=== PATIENT | male | born 2000 | race Hispanic/Latino ===

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

== ENCOUNTER 2020-08-21 20:21 | Emergency (ER) | payer OTHER | END 2020-08-21 21:58 | disposition home or self-care (01) | LOC: ERS 20:21 | DX: Z71.1 Person with feared health complaint in whom no diagnosis is made (principal) | CPT/HCPCS: 99281 ==

== ENCOUNTER 2022-06-16 13:12 | Emergency (ER) | payer OTHER ==
[2022-06-16] MEDS ORDERED: Ondansetron ODT 4 MG TAB ONE (13:28)
[2022-06-16] MEDS ORDERED: Dicyclomine 20 MG TAB ONE (13:28)
[2022-06-16] MEDS ORDERED: Famotidine 20 MG TAB ONE (13:43)
[2022-06-16] MEDS ORDERED: Mag-Al 1200 mg/1200 mg/30 ML UDCUP ONE (13:43)
[2022-06-16 13:50] LABS: #Eosinphils 0.2 thou/uL (0.0-0.7); #Lymphocytes 1.1 thou/uL (1.20-3.40); #Monocytes 0.9 thou/uL (0.11-0.59); #Neutrophils 9.4 thou/uL (1.40-6.50); %Basophils 0.3 % (0.0-1.0); %Eosinophils 1.3 % (0.0-10.0); %Lymphocytes 9.3 % (21.0-51.0); %Monocytes 7.4 % (0.0-10.0); %Neutrophils 81.7 % (42.0-75.0); Mean Corpuscular HGB CONC 32.8 g/dL (32.0-36.0); Mean Corpuscular Hemoglobin 29.4 pg (27.0-31.0); Mean Corpuscular Volume 89.7 fl (78.0-98.0); Mean Platelet Volume 8.2 fL (7.4-10.4); Platelet Count 226 10x3/uL (130-400); RBC Distribution Width 11.6 % (11.5-14.5); Red Blood Cell (RBC) Count 5.46 mill/uL (4.70-6.10); White Blood Cell (WBC) Count 11.5 10x3/uL (4.8-10.8)
[2022-06-16 14:30] LABS: ALT (SGPT) 16 U/L (8-55); AST (SGOT) 17 U/L (5-34); Albumin 4.5 g/dL (3.5-5.0); Alkaline Phosphatase 57 U/L (40-110); Anion Gap 13 mmol/L (10-20); BUN (Urea Nitrogen) 11 mg/dL (8.9-20.6); Bilirubin, Total 1.2 mg/dL (0.2-1.2); Calc. Creatinine Clearance 0 mL/min (70-130); Calcium 9.5 mg/dL (7.8-10.44); Carbon Dioxide 22 mmol/L (22-29); Chloride 107 mmol/L (98-107); Estimated GFR 115; Globulin 3.1 g/dL (2.4-3.5); Glucose 90 mg/dL (70-105); Lipase 14 U/L (8-78); Potassium 3.9 mmol/L (3.5-5.1); Protein, Total 7.6 g/dL (6.0-8.3); Sodium 138 mmol/L (136-145)
== END 2022-06-16 15:08 | disposition home or self-care (01) ==
LOC: ERS 13:12
DX: R10.13 Epigastric pain (principal); D72.829 Elevated white blood cell count, unspecified
CPT/HCPCS: 76705; 80053; 83690; 85025; Q0162

== ENCOUNTER 2022-06-17 10:03 | Emergency (ER) | payer OTHER ==
[2022-06-17] MEDS ORDERED: Cefepime 2 GM VIAL ONE (10:30)
[2022-06-17 10:39] LABS: #Basophils 0.1 thou/uL (0.0-0.2); #Lymphocytes 0.9 thou/uL (1.20-3.40); #Monocytes 1.1 thou/uL (0.11-0.59); #Neutrophils 9.6 thou/uL (1.40-6.50); %Basophils 0.5 % (0.0-1.0); %Eosinophils 0.3 % (0.0-10.0); %Lymphocytes 7.7 % (21.0-51.0); %Monocytes 9.5 % (0.0-10.0); Hemoglobin 16.1 g/dL (14.0-18.0); Mean Corpuscular HGB CONC 33.6 g/dL (32.0-36.0); Mean Corpuscular Hemoglobin 30.3 pg (27.0-31.0); Mean Corpuscular Volume 90.1 fl (78.0-98.0); Mean Platelet Volume 8.4 fL (7.4-10.4); Platelet Count 201 10x3/uL (130-400); RBC Distribution Width 11.4 % (11.5-14.5); Red Blood Cell (RBC) Count 5.33 mill/uL (4.70-6.10); White Blood Cell (WBC) Count 11.7 10x3/uL (4.8-10.8)
[2022-06-17] MEDS ORDERED: Vancomycin HCl 2.5 GM in Sodium Chloride 0.9% 500 ML IVPB SCH (11:00)
[2022-06-17] MEDS ORDERED: Morphine 4 MG/ML VIAL ONE (11:10)
[2022-06-17] MEDS ORDERED: Ondansetron PF 4 MG/2 ML Vial ONE (11:10)
[2022-06-17 11:22] LABS: ALT (SGPT) 17 U/L (8-55); AST (SGOT) 26 U/L (5-34); Albumin 4.5 g/dL (3.5-5.0); Alkaline Phosphatase 55 U/L (40-110); Anion Gap 19 mmol/L (10-20); BUN (Urea Nitrogen) 12 mg/dL (8.9-20.6); Bilirubin, Total 2.8 mg/dL (0.2-1.2); Calc. Creatinine Clearance 0 mL/min (70-130); Calcium 9.1 mg/dL (7.8-10.44); Carbon Dioxide 18 mmol/L (22-29); Chloride 103 mmol/L (98-107); Estimated GFR 79; Globulin 3.4 g/dL (2.4-3.5); Glucose 98 mg/dL (70-105); Potassium 4.5 mmol/L (3.5-5.1); Protein, Total 7.9 g/dL (6.0-8.3); Sodium 135 mmol/L (136-145)
[2022-06-17] MEDS ORDERED: Famotidine/PF 20 mg/2ml Vial ONE (12:17)
[2022-06-17] MEDS ORDERED: Ketorolac Tromethamine 30 MG/ML VIAL ONE (12:17)
[2022-06-17] MEDS ORDERED: Mag-Al 1200 mg/1200 mg/30 ML UDCUP PO SCH (12:30)
[2022-06-17] MEDS ORDERED: Lidocaine Viscous Sol 2% 15 ml UD Cup ONE (12:31)
[2022-06-17] MEDS ORDERED: Mag-Al 1200 mg/1200 mg/30 ML UDCUP ONE ×2 (12:31)
[2022-06-17] MEDS ORDERED: hydrOXYzine Pamoate 25 mg Capsule ONE (12:31)
[2022-06-17 12:39] LABS: SARS-CoV-2 NAA Rapid Test Not Detected (NotDetected)
[2022-06-17] MEDS ORDERED: Lidocaine Viscous Sol 2% 15 ml UD Cup SSW SCH (12:45)
[2022-06-17] MEDS ORDERED: Iopamidol-370 76% 500 ML 1 ML ONE (13:06)
[2022-06-17 13:09] LABS: Actual Bicarbonate (HCO3v) 23 mEq/L (22-28); Base Excess -2.3 mEq/L (-2.0 to +3.0); Calcium, Ionized (venous) 1.08 mmol/L (1.16-1.32); Chloride (VBG) 103 mmol/L (98-106); Hemoglobin (Hb) 15.8 g/dL (13.2-17.3); pH (venous) 7.35 (7.32-7.43)
== END 2022-06-17 14:56 | disposition home or self-care (01) ==
LOC: ERS 10:03
DX: K29.70 Gastritis, unspecified, without bleeding (principal); D72.829 Elevated white blood cell count, unspecified; E80.6 Other disorders of bilirubin metabolism; Z20.822 Contact with and (suspected) exposure to COVID-19
CPT/HCPCS: 71045; 71275; 74177; 76705; 80053; 82550; 82805; 83605; 83690; 84484; 85025; 87040; 93005; 96365; 96366; 96367; 96375; J0692; J1885; J2270; J2405; J3370; J7030; Q0162; Q0177; Q9967; S0028

== ENCOUNTER 2023-04-06 19:44 | Emergency (ER) | payer OTHER, SELFPAY | END 2023-04-06 22:48 | disposition home or self-care (01) | LOC: ERS 19:44 | DX: U07.1 COVID-19 (principal) | CPT/HCPCS: 87635; 99284 ==

== ENCOUNTER 2023-06-16 13:41 | Emergency (ER) | payer SELFPAY | END 2023-06-16 14:59 | disposition home or self-care (01) | LOC: ERS 13:41 | DX: T23.211A Burn of second degree of right thumb (nail), initial encounter (principal); X03.8XXA Other exposure to controlled fire, not in building or structure, initial encounter | CPT/HCPCS: 99283 ==

== ENCOUNTER 2024-03-12 16:58 | Emergency (ER) | payer SELFPAY ==
[2024-03-12] MEDS ORDERED: Ibuprofen 200 MG TAB ONE (17:17)
[2024-03-12] MEDS ORDERED: Ondansetron PF 4 MG/2 ML Vial ONE (17:17)
[2024-03-12 17:50] LABS: #Basophils 0.04 10x3/uL (0.0-0.2); %Basophils 0.5 % (0.0-1.0); %Eosinophils 0.6 % (0.0-10.0); %Lymphocytes 7.3 % (21.0-51.0); %Monocytes 15.5 % (0.0-10.0); %Neutrophils 75.5 % (42.0-75.0); Hematocrit 43.4 % (42.0-52.0); Hemoglobin 14.6 g/dL (14.0-18.0); Mean Corpuscular HGB CONC 33.6 g/dL (32.0-36.0); Mean Corpuscular Hemoglobin 28.8 pg (27.0-31.0); Mean Corpuscular Volume 85.6 fL (78.0-98.0); Mean Platelet Volume 10.5 fL (7.4-10.4); Platelet Count 202 10x3/uL (130-400); RBC Distribution Width 12.9 % (11.5-14.5); Red Blood Cell (RBC) Count 5.07 mill/uL (4.70-6.10)
[2024-03-12 18:09] LABS: ALT (SGPT) 43 U/L (8-55); AST (SGOT) 26 U/L (5-34); Albumin 3.8 g/dL (3.5-5.0); Alkaline Phosphatase 71 U/L (40-110); Anion Gap 13 mmol/L (10-20); BUN (Urea Nitrogen) 8 mg/dL (8.9-20.6); Bilirubin, Total 0.8 mg/dL (0.2-1.2); Calc. Creatinine Clearance 0 mL/min (70-130); Calcium 8.9 mg/dL (7.8-10.44); Carbon Dioxide 20 mmol/L (22-29); Chloride 108 mmol/L (98-107); Estimated GFR 110; Globulin 2.9 g/dL (2.4-3.5); Glucose 95 mg/dL (70-105); Lipase 15 U/L (8-78); Potassium 3.7 mmol/L (3.5-5.1); Protein, Total 6.7 g/dL (6.0-8.3); Sodium 137 mmol/L (136-145)
== END 2024-03-12 19:13 | disposition home or self-care (01) ==
LOC: ERS 16:58
DX: J10.1 Influenza due to other identified influenza virus with other respiratory manifestations (principal)
CPT/HCPCS: 36415; 71045; 80053; 83605; 83690; 85025; 87428; 96374; J2405

== ENCOUNTER 2024-12-19 18:24 | Emergency (ER) | payer OTHER ==
[2024-12-19] MEDS ORDERED: Dexamethasone 10 MG/ML VIAL ONE (18:41)
[2024-12-19] MEDS ORDERED: diphenhydrAMINE 50 MG/ML VIAL ONE (18:41)
== END 2024-12-19 18:50 | disposition home or self-care (01) ==
LOC: ERS 18:24
DX: T63.461A Toxic effect of venom of wasps, accidental (unintentional), initial encounter (principal)
CPT/HCPCS: 96372; 99282; J1100; J1200

== ENCOUNTER 2025-03-02 14:47 | Outpatient (CLI) | payer OTHER | END 2025-03-02 14:48 | disposition home or self-care (01) | LOC: BICRAD 14:47 | PROVIDERS: ATTEND Student in an Organized Health Care Education/Training Program | DX: M13.0 Polyarthritis, unspecified (principal); M43.8X7 Other specified deforming dorsopathies, lumbosacral region | CPT/HCPCS: 72100 ==